=== PATIENT | female | born 1945 | race Caucasian/White ===

== ENCOUNTER 2023-11-20 20:31 | Inpatient (IN) | payer OTHER, SELFPAY ==
[2023-11-20 12:06] VITALS: BP 174/83
[2023-11-20 12:45] VITALS: BMI 22.7
[2023-11-20 13:02] LABS: % Basophils 0.2 % (0-2); % Eosinophils 0.2 % (0-6); % Immature Granulocytes 0.2 % (0-0.5); % Lymphocytes 6.7 % (20.5-51.1); % Monocytes 3.3 % (1.7-9.3); % Neutrophils 89.4 % (42.2-75.2); Absolute Lymphocytes 0.8 10^3/uL (1.2-3.4); Absolute Monocytes 0.4 10^3/uL (0.1-0.6); Absolute Neutrophils 11.1 10^3/uL (1.4-6.5); Hematocrit 46.7 % (37.0-47.0); Hemoglobin 15.1 g/dL (12.0-16.0); Mean Corp Hgb Conc. 32.3 g/dL (33.0-37.0); Mean Corpuscular Hgb 29.3 pg (27.0-31.0); Mean Corpuscular Volume 90.7 fL (81.0-99.0); Mean Platelet Volume 10.3 fL (7.4-10.4); Nucleated Red Blood Cells % 0 %; Platelet Count 177 10^3/uL (130-400); Red Blood Cell Count 5.15 10^6/uL (4.20-5.40); Red Cell Dist. Width 13.1 % (11.5-14.5); White Blood Cell Count 12.4 10^3/uL (4.8-10.8)
[2023-11-20 13:28] LABS: ALT (SGPT) 23 U/L (0-35); AST (SGOT) 35 U/L (14-36); Albumin 4.6 g/dl (3.5-5.0); Alkaline Phosphatase 67 U/L (38-126); Blood Urea Nitrogen 23 mg/dl (7-17); Calcium 9.8 mg/dl (8.4-10.2); Carbon Dioxide 18 mmol/L (22-30); Chloride 104 mmol/L (98-107); Estimated Creatinine Clearance 42 ml/min; Glucose 148 mg/dl (70-99); Lipase 122 U/L (23-300); Potassium 4.2 mmol/L (3.5-5.1); Sodium 140 mmol/L (135-145); Total Bilirubin 0.8 mg/dl (0.2-1.3); Total Protein 7.7 g/dl (6.3-8.2); eGFR 56.95
[2023-11-20] MEDS: NSS 1000 IV ×3 (14:17→21:30)
[2023-11-20 14:18] VITALS: BP 165/81
[2023-11-20 15:53] LABS: Urine Albumin Negative (Neg - Trace); Urine Bilirubin Negative (Negative); Urine Character Clear (Clear); Urine Color Yellow; Urine Glucose Negative (Negative); Urine Ketone 3+ (Negative); Urine Leukocyte 1+ (Negative); Urine Nitrite Negative (Negative); Urine Occult Blood Negative (Negative); Urine Specific Gravity 1.015 (<1.030); Urine Urobilinogen Negative (Neg - 1+)
[2023-11-20 15:55] VITALS: BP 152/74
[2023-11-20 16:10] LABS: Urine Bacteria Few (Negative); Urine Red Blood Cell 0-2 /HPF (0-2); Urine Squamous Cell 0-2 /LPF (Few)
--- NOTE | 2023-11-20 18:13 | ED.GENMED ---
History of Present Illness
General
Chief Complaint: Abdominal Pain
Source: patient and family
Exam Limitations: none
Time Seen by Provider: 11/20/23 12:33
Nursing documentation reviewed up to this point in time: agreed with
Travel History
Have you had any contact with someone who has COVID-19?: No
Do you have any symptoms of coronavirus? Fever > 100 degrees, chills, cough, shortness of breath, sore throat, loss of taste or smell, muscle aches, or headache?: No
History of Present Illness
History of Present Illness:
78-year-old female presenting to the emergency department with concerns of abdominal pain starting last night denies nausea vomiting diarrhea. When she eats she has significant increased discomfort. Has a history of hypertension hyperlipidemia.
Past History
Past History
ED Past Medical History: HTN and Hypercholesterolemia
ED Past Surgical History: Appendectomy
Social History
Tobacco: Non-smoker
Drug: None
Personal:
Living: with family
Employment: Retired
Family History
Family History: Other
Review of Systems
Review of Systems
Allergies reviewed?: Yes
All Other Systems: ROS reviewed and negative except as documented in HPI and ROS
Phy Exam
Physical Exam
Physical Exam:
GENERAL: Alert , in no apparent distress
EYE: pupils equal and reactive
NECK: Supple, no significant adenopathy.
ENT: o/p clr, mmm.
CARDIAC: Regular rate and rhythm .
LUNGS: Clear breath sounds bilaterally, no acute respiratory distress, no wheezes/rales/rhonchi
ABDOMEN: Soft, without focal tenderness, no r/g, no cvat
NEUROLOGICAL: Alert and oriented, no focal neuro deficits
SKIN: Warm and dry, skin intact.
MUSCULOSKELETAL: No edema, well perfused.
PSYCH: Normal and appropriate interaction.
Course
Orders/Labs/Results
Orders:
Orders
11/20/23 12:47
IV Insert/Care/Rem.- Treatment PRN
11/20/23 12:52
Complete Blood Count/With Diff Urgent
Comprehensive Metabolic Panel Urgent
Lipase Urgent
11/20/23 14:04
CT Abd/Pel (IV only)-DH only Urgent
Comment:
Reason For Exam: diffuse abd pain
0.9% Sodium Chloride 1000 ml [Nss] 1,000 ml IV BOLUS
11/20/23 15:40
Urinalysis Reflex To Culture Urgent
Date Specimen was Collected: 11/20/23
Time Specimen was Collected: 15:39
Urine Microscopic Reflex Cult Urgent
Urine Culture Urgent
JUDITH Source: U
Specimen Description:
Date Specimen was Collected: 11/20/23
Time Specimen was Collected: 15:39
11/20/23 18:47
Piperacillin/Tazo 3.375 Gram [Zosyn] 3.375 gram in 50 ml IV NOW
11/20/23 18:48
0.9% Sodium Chloride 1000 ml [Nss] 1,000 ml IV BOLUS
11/21/23 Breakfast
NPO
Allow oral meds: No
Allow clear liquids: No
NPO with Ice Chips: No
Abnormal Lab Results
11/20/23 11/20/23
12:52 15:40
WBC 12.4 H 10^3/uL
(4.8-10.8)
MCHC 32.3 L g/dL
(33.0-37.0)
Absolute Neuts (auto) 11.1 H 10^3/uL
(1.4-6.5)
Absolute Lymphs (auto) 0.8 L 10^3/uL
(1.2-3.4)
Neutrophils % 89.4 H %
(42.2-75.2)
Lymphocytes % 6.7 L %
(20.5-51.1)
Carbon Dioxide 18 L mmol/L
(22-30)
BUN 23 H mg/dl
(7-17)
Glucose 148 H mg/dl
(70-99)
Urine Ketones 3+ A
(Negative)
Leukocyte Esterase Rfl 1+ A
(Negative)
Urine Bacteria (Reflex) Few A
(Negative)
11/20/23 12:52
11/20/23 12:52
Vital Signs
Initial and Last Documented VS:
Initial Vital Signs
Temp Pulse Resp BP Pulse Ox
98.1 F 118 18 174/83 98
11/20/23 12:06 11/20/23 12:06 11/20/23 12:06 11/20/23 12:06 11/20/23 12:06
Last Documented Vital Signs
Temp Pulse Resp BP Pulse Ox
98.3 F 103 18 152/74 97
11/20/23 15:55 11/20/23 15:55 11/20/23 15:55 11/20/23 15:55 11/20/23 15:55
MDM/Problems Addressed
MDM/Problems Addressed:
78-year-old female presenting to the emergency department today with concerns of abdominal pain starting last night worse with eating no nausea vomiting or diarrhea. No significant tenderness palpation on exam. Initial heart rate elevated proving
here after fluids otherwise white blood cell count of 12.[address] scan showing extensive diverticulosis coli and diverticulosis of small bowel potential small area of diverticulitis differential includes contained perforation and
abscess. Concerning this additional finding Case discussed with general surgery they would like patient to be admitted with Zosyn IV fluids n.p.o. Patient stable throughout ER stay. No worsening of abdominal pain throughout ER stay.
*Critical Care Note
Total Time (30-74mins, 75-104mins- exclusive of procedures): Not Applicable
ED Attending Note
-
Portions of this chart may have been created with voice recognition software.� Occasional wrong word or��sound alike� substitutions may have occurred due to the inherent limitations of voice recognition software.
Discharge Plan
Departure
Patient Disposition: Admit
Date of Disposition: 11/20/23
Time of Disposition: 18:51
Admit to: Med/Surg
Admit to doctor: Mary Jane
Presentation/result/management discussed w/ accepting MD/DO: Hospitalist
Patient with high blood pressure during this ER visit?: No
Condition: Good
Covid-19: Not Applicable
Discharge Problem:
Diverticulitis of small intestine
Prescriptions:
No Action
ketorolac 1 DROP drops
2 drp ophthalmic (eye) TID
Patient Comments:
R eye
amlodipine 10 MG tablet
10 mg PO DAILY
doxazosin 4 MG tablet
2 mg PO DAILY
atenolol 50 MG tablet
50 mg PO DAILY
rosuvastatin 10 MG tablet
5 mg PO QPM
Referrals:
Evelyn Silver DO [Family Provider] -
Interventions
Interventions:
*Risk Screen - Suicide Last Done: 11/20/23 12:07
*General Assessment Last Done: 11/20/23 12:45
*Neglect/Abuse Screening Last Done: 11/20/23 12:07
ED- Fall Risk Assessment Last Done: 11/20/23 12:45
*ED COVID-19 Vaccine History Last Done: 11/20/23 12:45
UK-Hlktue-Tclgpynkft Assessment Last Done: 11/20/23 12:45
Discharge Date and Time
Print Language: BELARUSIAN
[2023-11-20] MEDS: ZOSYN 50 IV ×2 (18:55→23:52)
[2023-11-20 18:56] VITALS: BP 165/59
--- NOTE | 2023-11-20 19:56 | HPS.HSE ---
Family Physician
-
Family Physician: Evelyn Silver
Chief Complaint
-
Abd Pain
History of Present Illness
Patient is an 78y F with PMH significant for hypertension and dyslipidemia who presents to ED complaining of abdominal pain. Patient states that she developed abdominal pain about 2 days ago. Pain starts in the lower abdomen and then 'rises'
into the upper abdomen before radiating around to the mid back. Pain is significantly increased with PO intake and - as a result - patient has had little to eat / drink in the past 2 days. She denies any associated N/V/D, no bloody / black stools.
No fevers / chills. Patient denies any prior history of similar symptoms.
Medical History
Past Medical History
Past Medical History: Reports Other
Additional Past Medical History:
Hypertension
Dyslipidemia
Breast Cancer s/p Lumpectomy
Past Surgical History: Reports Other
Additional Past Surgical History:
Right Lumpectomy
Cataracts
Appendectomy
Social History
Tobacco: Non-smoker
Alcohol: Occasional (Rare)
Drug: None
Family History
Family History: Other (Father: Unknown malignancy Daughter: Bladder Cancer)
Allergies / Home Medications
Allergies reflects when Allergies were last updated in [facility].
Home Medications with original date entered in [facility]
Allergy/Medication List:
Allergies
Allergy/AdvReac Type Severity Reaction Status Date / Time
No Known Allergies Allergy Verified 11/20/23 12:04
Home Medications
doxazosin 4 mg tablet 4 mg PO HS 06/13/17
amlodipine 5 mg tablet 5 mg PO HS 11/20/23
loteprednol etabonate 0.5 % eye drops,suspension (Lotemax) 1 drp BOTH EYES HS 11/20/23
rosuvastatin 5 mg tablet 5 mg PO HS 11/20/23
Review of Systems
-
History Source: Patient
A 12 point ROS was completed and negative except as noted: Yes
Constitutional: Denies Fever or Chills
Respiratory: Denies Cough or Trouble Breathing
Cardiac: Denies Chest Pain or Palpitations
Abdomen/GI: Reports Abdominal Pain; Denies Nausea, Vomiting, Diarrhea, Bloody Stools or Black Stools
: Denies Dysuria
Musculoskeletal: Denies Joint Pain or Edema
Neurological: Denies Dizzy or Headache
Psych: Denies Depression or Anxiety
Physical Exam
Vital Signs
Vital Signs
Temp Pulse Resp BP Pulse Ox
98.3 F 106 16 165/59 98
11/20/23 15:55 11/20/23 18:56 11/20/23 18:56 11/20/23 18:56 11/20/23 18:56
Physical Exam
General: Other (78y F in no acute distress.)
HEENT: Moist mucous membranes and PERRLA
Respiratory: Clear; No Wheezes, Rales or Rhonchi
Cardiac: S1/S2, Regular Rhythm, Tachycardia and Murmur (II/ LOBO)
GI: Soft, Non Distended, Normal Bowel Sounds and Other (Mild tenderness in the epigastric region.)
Musculoskeletal: No Clubbing, No Cyanosis and No Edema
Neuro: AO x 3
Laboratory Results
-
11/20/23 12:52
11/20/23 12:52
Laboratory Results
Total Bilirubin 0.8 mg/dl (0.2-1.3) 11/20/23 12:52
AST 35 U/L (14-36) 11/20/23 12:52
ALT 23 U/L (0-35) 11/20/23 12:52
Alkaline Phosphatase 67 U/L (38-126) 11/20/23 12:52
Lipase 122 U/L (23-300) 11/20/23 12:52
Impression/Plan
-
A/P: Patient is an 78y F with PMH significant for hypertension and dyslipidemia who presents to ED complaining of abdominal pain x 2 days.
Abdominal Pain
Small Bowel Diverticulitis +/- Abscess
- Admit for further evaluation and treatment.
- NPO, IVFs, pain control.
- IV PPI daily.
- IV abx with Zosyn for now.
- Surgery evaluation for additional recommendations.
- Lipase was normal.
- Follow for any new / worsening symptoms.
Anion Gap Metabolic Acidosis
- Unclear etiology.
- Check lactate level.
- IVF support.
- Follow for changes in labs / lytes.
Benign Hypertension
- BP elevated in the ED, likely in part secondary to pain.
- Continue efforts at adequate pain control.
- Continue home BP med regimen with holding parameters,.
DVT Prophylaxis: SCDs
Code Status: Full
[2023-11-20 21:08] VITALS: BP 151/78; BP 163/83; BP 173/90; PULSE 107; PULSE 109; PULSE 123; BMI 23.8
[2023-11-20] MEDS: NORVASC 5 MG PO (21:29)
[2023-11-20] MEDS: CARDURA 4 MG PO (21:30)
[2023-11-20 21:49] LABS: Lactic Acid 0.9 mmol/L (0.7-2.0)
[2023-11-20] MEDS: MELATONIN 5 MG PO (22:04)
[2023-11-20 23:00] VITALS: BP 142/71
[2023-11-21] MEDS: ZOSYN 50 IV ×3 (05:15→17:36)
[2023-11-21 06:00] VITALS: BMI 23.8
[2023-11-21 06:42] LABS: Hemoglobin 13.8 g/dL (12.0-16.0); Mean Corp Hgb Conc. 33.7 g/dL (33.0-37.0); Mean Corpuscular Hgb 30.4 pg (27.0-31.0); Mean Corpuscular Volume 90.3 fL (81.0-99.0); Mean Platelet Volume 10.4 fL (7.4-10.4); Platelet Count 180 10^3/uL (130-400); Red Blood Cell Count 4.54 10^6/uL (4.20-5.40); Red Cell Dist. Width 13.2 % (11.5-14.5); White Blood Cell Count 9.2 10^3/uL (4.8-10.8)
[2023-11-21 07:03] LABS: Blood Urea Nitrogen 16 mg/dl (7-17); Calcium 9.2 mg/dl (8.4-10.2); Carbon Dioxide 16 mmol/L (22-30); Chloride 109 mmol/L (98-107); Estimated Creatinine Clearance 34 ml/min; Glucose 61 mg/dl (70-99); Sodium 143 mmol/L (135-145)
[2023-11-21 08:00] VITALS: BP 119/48
[2023-11-21] MEDS: PROTONIX IV 40 MG IV (08:12)
[2023-11-21] MEDS: NSS (PRESERVATIVE FREE) 10 ML IV (08:19)
--- NOTE | 2023-11-21 08:43 | CON.GS ---
Consultation
-
Date/Time Consultation Requested: 11/20/2023
Date/Time Consultation Performed: 11/21/2023
Requesting Provider: Dr. Osiel Da Silva
Performing Provider: Dr. Onel Ortiz
Reason for Consultation: Abdominal pain
Medical History
-
Chief Complaint: Abdominal pain
History of Present Illness:
Patient is a 78-year-old female with past medical history of hypertension, hyperlipidemia, breast CA s/p lumpectomy, who presented to the ED on 11/20/2023 with 2 days history of severe abdominal pain. Patient reports that pain started in the
lower abdomen progressed proximally within 2 days. Patient rated abdominal pain 10/10, was generalized and radiated to the back; she has never had such abdominal pain before. CT scan abdomen/pelvis with IV contrast 11/20/2023 reports extensive
diverticulosis coli with suspected focal small bowel diverticulitis in the LUQ likely a walled off perforation/abscess. General surgery was consulted for evaluation of further management.
Today, patient states that her pain is 0/10. She reports that her last BM was 2 days ago and was harder than usual. Her only past surgical history: Appendectomy. She has never had a colonoscopy but uses Cologuard which she reports were normal. She
denies fever, chills, N/V/D, or urinary symptoms.
Past Medical History
Past Medical History: Diverticulitis, HTN and Hypercholesterolemia
Past Surgical History: Appendectomy
Social History
Tobacco: Non-Smoker
Alcohol: None
Drug: None
Personal:
Living: With Family
Family History
Family History: Reviewed & Not Pertinent
Allergies / Home Medications
Allergy/AdvReac Type Severity Reaction Status Date / Time
No Known Allergies Allergy Verified 11/20/23 12:04
�Medication �Instructions �Recorded �Confirmed �Type
doxazosin 4 mg tablet 4 mg PO HS 06/13/17 11/20/23 History
amlodipine 5 mg tablet 5 mg PO HS 11/20/23 11/20/23 History
loteprednol etabonate 0.5 % eye 1 drp BOTH EYES HS 11/20/23 11/20/23 History
drops,suspension (Lotemax)
rosuvastatin 5 mg tablet 5 mg PO HS 11/20/23 11/20/23 History
Review of Systems
-
History Source: Patient
Constitutional: No Symptoms, Fever (Negative) and Chills (Negative)
EENT: No Symptoms
Respiratory: No Symptoms and Trouble Breathing (Negative)
Cardiac: No Symptoms, Chest Pain (Admitted) and Palpitations (Negative)
Abdomen/GI: Abdominal Pain, Nausea (Negative), Vomiting (Negative), Diarrhea (Negative), Bloody Stools (Negative) and Black Stools (Negative)
: No Symptoms
A 10 point review of systems was completed, and was negative except as per HPI.
Physical Exam
Vital Signs
Temp Pulse Resp BP Pulse Ox
98 F 92 16 119/48 97
11/21/23 08:00 11/21/23 08:00 11/21/23 08:00 11/21/23 08:00 11/21/23 08:00
11/20/23 11/21/23 11/22/23
06:59 06:59 06:59
Actual Weight 61.054 kg
Body Mass Index (BMI) 23.8
Lab Results
11/21/23 06:08
11/21/23 06:08
WBC 9.2 10^3/uL (4.8-10.8) 11/21/23 06:08
Hgb 13.8 g/dL (12.0-16.0) 11/21/23 06:08
Hct 41.0 % (37.0-47.0) 11/21/23 06:08
Plt Count 180 10^3/uL (130-400) 11/21/23 06:08
Abs Immat Gran (auto) 0.0 10^3/uL (0-0.05) 11/20/23 12:52
Neutrophils % 89.4 % (42.2-75.2) H 11/20/23 12:52
Physical Exam
General: Well Nourished, No Apparent Distress and Comfortable
HEENT: Anicteric
Respiratory: Clear and Non Labored Respirations
Cardiac: S1/S2
GI: Soft, Non Tender and Non Distended; Negative Distended
Rectal: Deferred by Provider
Skin: Warm
Neuro: Awake, Alert, Oriented and AO x 3
Psych: Calm
Data Reviewed
-
CT Scan: Image Personally Visualized and interpreted, Report Reviewed by me and Discussed with Physician
Labs: Labs Reviewed by me and Discussed with Physician
Old Records: Reviewed
Assessment / Plan
-
Assessment: 78-year-old female with PMH of HTN, hyperlipidemia, presenting with severe abdominal pain 04/15 radiating to the back on 11/20/2023. Her only past surgical history, appendectomy.
Impression:
Presentation with severe abdominal pain
Anion gap metabolic acidosis
Presentation with severe abdominal pain:
-Resolved with antibiotics, pain control and IV fluid.
-CT abdomen/pelvis 11/20/2023 with diverticulosis coli and small bowel diverticulosis in LUQ.
-Most likely small bowel diverticulitis vs inflamed diverticulosis. Patient with normal lipase and remains afebrile with normal white cell count.
-Continue IV antibiotics, advance diet as tolerated, if she continues to tolerate, will discharge on PO. antibiotics for 5 to 7 days.
Continue daily PPI for now
Anion Gap Metabolic Acidosis:
-Normal lactic acid, low serum glucose, and normal lipase.
-Likely a mixed acidosis due to compensation due to pain.
-Trend labs.
--- NOTE | 2023-11-21 11:07 | W.PN.HOSP.TC ---
Today's Communication/Plan
-
.
Assessment / Plan
Assessment / Plan
Physical Exam
General: Other (78y F in no acute distress.)
HEENT: Moist mucous membranes and PERRLA
Respiratory: Clear; No Wheezes, Rales or Rhonchi
Cardiac: S1/S2, Regular Rhythm, Tachycardia and Murmur (II/ LOBO)
GI: Soft, Non Distended, Normal Bowel Sounds and Other (Mild tenderness in the left side of abdomen)
Musculoskeletal: No Clubbing, No Cyanosis and No Edema
Neuro: AO x 3, she followed commands, non focal on exam.
Psych: calm, no agitation.
Patient is an 78y F with PMH significant for hypertension and dyslipidemia who presents to ED complaining of abdominal pain x 2 days.
Abdominal Pain, resolved
Acute diverticulitis / probable small bowel diverticulitis versus contained mesenteric small bowel perforation presumably due to small bowel diverticulosis
She is improving. Will continue with liquid diet and then advance slowly. No need for pain medication. No fever or chills. Does not complain of abdominal pain. No nausea.
Appreciate surgery help
Anion Gap Metabolic Acidosis
- Unclear etiology.
- Check lactate level.
- IVF support.
- Follow for changes in labs / lytes.
Benign Hypertension
Continue monitor blood pressure
DVT Prophylaxis: SCDs
Code Status: Full
Total time spent to see the patient, examine the patient on the floor, review data and lab results, discuss treatment plan with patient and nursing staff around 55 minutes
Anticipated Discharge: Within 24 hours
Subjective/Interval History
-
Date of Service: November 21, 2023
Not much pain in abdomen
No nausea
Objective Data
-
Labs:
Laboratory Results
11/21/23
06:08
WBC 9.2
Hgb 13.8
Hct 41.0
Plt Count 180
Sodium 143
Potassium 4.0
Chloride 109 H
Carbon Dioxide 16 L
BUN 16
Creatinine 1.1 H
Glucose 61 L
Calcium 9.2
Vital Signs:
Vital Signs
Temp Pulse Resp BP Pulse Ox
98 F 92 16 119/48 97
11/21/23 08:00 11/21/23 08:00 11/21/23 08:00 11/21/23 08:00 11/21/23 08:00
I&O
11/20/23 11/21/23 11/22/23
06:59 06:59 06:59
Intake Total 100 / 100
Balance 100 / 100
[2023-11-21] MEDS: NSS 1000 IV (11:26)
--- NOTE | 2023-11-21 11:47 | CON.GS ---
Consultation
-
Performing Provider: Diana
Reason for Consultation: Small bowel diverticulitis
Medical History
-
Chief Complaint: Abdominal pain
History of Present Illness:
Patient is a 78-year-old female who presented to the emergency department yesterday afternoon secondary to the acute onset of abdominal pain.
Her symptoms started Friday evening, approximately 72 hours ago. They were rather acute in onset and in the central abdomen with intermittent colicky discomfort. Whenever she ate her pain became worse. She reached out to her primary care
provider and was referred for emergency department evaluation. She had some associated anorexia/food aversion. No nausea or vomiting. Last bowel movement was Friday evening and normal formed stool. No melena or hematochezia.
No previous diagnosis of diverticulosis. She has never had a colonoscopy but follows with Cologuard's that have been negative.
Past Medical History
Past Medical History: Other (Hypertension, hyperlipidemia, history of breast cancer)
Past Surgical History: Other (Appendectomy, cataracts, right lumpectomy)
Social History
Tobacco: Non-Smoker
Alcohol: None
Personal:
Living: With Family
Family History
Family History: Reviewed & Not Pertinent
Allergies / Home Medications
Allergy/AdvReac Type Severity Reaction Status Date / Time
No Known Allergies Allergy Verified 11/20/23 12:04
�Medication �Instructions �Recorded �Confirmed �Type
doxazosin 4 mg tablet 4 mg PO HS Blood Pressure 06/13/17 11/20/23 History
amlodipine 5 mg tablet 5 mg PO HS Blood Pressure 11/20/23 11/20/23 History
loteprednol etabonate 0.5 % eye 1 drp BOTH EYES HS Eye Condition 11/20/23 11/20/23 History
drops,suspension (Lotemax)
rosuvastatin 5 mg tablet 5 mg PO HS High Cholesterol 11/20/23 11/20/23 History
Review of Systems
-
History Source: Patient
All other systems: Negative unless noted
A 10 point review of systems was completed, and was negative except as per HPI.
Physical Exam
Vital Signs
Temp Pulse Resp BP Pulse Ox
98 F 92 16 119/48 97
11/21/23 08:00 11/21/23 08:00 11/21/23 08:00 11/21/23 08:00 11/21/23 08:00
11/20/23 11/21/23 11/22/23
06:59 06:59 06:59
Actual Weight 61.054 kg
Body Mass Index (BMI) 23.8
Lab Results
11/21/23 06:08
11/21/23 06:08
WBC 9.2 10^3/uL (4.8-10.8) 11/21/23 06:08
Hgb 13.8 g/dL (12.0-16.0) 11/21/23 06:08
Hct 41.0 % (37.0-47.0) 11/21/23 06:08
Plt Count 180 10^3/uL (130-400) 11/21/23 06:08
Abs Immat Gran (auto) 0.0 10^3/uL (0-0.05) 11/20/23 12:52
Neutrophils % 89.4 % (42.2-75.2) H 11/20/23 12:52
Physical Exam
General: Well Developed, Well Nourished, No Apparent Distress, Comfortable and Other (Lying in hospital bed, at bedside)
HEENT: Normocephalic, Anicteric and Moist Mucous Membranes
Respiratory: Non Labored Respirations
Cardiac: Regular Rhythm
GI: Soft, Non Distended and Tender (Very slight and no tenderness only localized to the left upper quadrant. No rebound rigidity or guarding. No generalized tenderness on palpation or percussion.)
Skin: Warm
Neuro: AO x 3
Psych: Calm
Data Reviewed
-
CT Scan: Image Personally Visualized and interpreted, Report Reviewed by me, Discussed with Physician, Discussed with Patient and Discussed with Family
Assessment / Plan
-
Assessment: 78-year-old female presenting with probable small bowel diverticulitis versus contained mesenteric small bowel perforation presumably due to small bowel diverticulosis.
There appears to be an inflamed diverticulum of the more proximal jejunum. Based on prompt improvement in symptoms and essentially resolution I suspect that this is more likely uncomplicated small bowel diverticulitis with any contained mesenteric
perforation. Leukocytosis resolved, afebrile and no tachycardia. There is essentially minimal to no tenderness on examination this a.m.
Plan: Reviewed with patient and her at bedside. We discussed options for nonoperative management given prompt clinical improvement and presumed uncomplicated small bowel diverticulitis.
Advised regarding potential risk for recurrence particularly if this is a contained small bowel mesentery perforation and not uncomplicated small bowel diverticulitis.
Patient clearly wishes to avoid any surgical intervention unless absolutely necessary.
Okay for liquid diet today, continue Zosyn.
If no exacerbation of pain with p.o. challenge then will advance to low residue diet tomorrow a.m. and subsequently discharge with 10-day course of Augmentin.
Patient could subsequently follow-up with myself as an outpatient to confirm complete resolution of symptoms and consideration of imaging at a later date as an outpatient.
[2023-11-21 15:52] VITALS: BP 112/85
--- NOTE | 2023-11-21 16:20 | CM ---
Met with pt at bedside
Lives with her in a 3 story home
Independent
DME - none
SNF/HH - no past hx
Has ride at d/c
PCP - Dr Rema Silver
Pharm - [facility]
Plan - anticipate home no needs
[2023-11-21] MEDS: REFRESH EYE DROPS (PF) 1 DROPS OPHTH (20:58)
[2023-11-21] MEDS: NORVASC 5 MG PO (20:59)
[2023-11-21] MEDS: CARDURA 4 MG PO (21:05)
[2023-11-21 23:00] VITALS: BP 137/71
[2023-11-22] MEDS: ZOSYN 50 IV ×2 (00:39→05:44)
[2023-11-22] MEDS: NSS 1000 IV (02:45)
[2023-11-22 06:00] VITALS: BMI 24.1
[2023-11-22] MEDS: REFRESH EYE DROPS (PF) 1 DROPS OPHTH (06:31)
[2023-11-22 07:53] VITALS: BP 138/78
[2023-11-22] MEDS: NSS (PRESERVATIVE FREE) 10 ML IV (07:54)
[2023-11-22] MEDS: FLUSH (NSS) 2 FLUSH IV (07:54)
[2023-11-22] MEDS: PROTONIX IV 40 MG IV (07:54)
--- NOTE | 2023-11-22 10:03 | W.PN.GS2 ---
Addendum entered and electronically signed by Onel Ortiz MD 11/22/23 10:12:
pt seen and examined with [facility]EW[facility]
agree with documented progress note
symptoms completely resolved and fariba breakfast
AFVSS
ABD: soft and no tenderness on palpation, no distention
A/P: 78 y/o female with probable resolving uncomplicated jejunal diverticulitis (more likely than contained SB perforation given quick clinical resolution)
d/c on augmentin for 10 day course
outpt imaging in 2-3 weeks which my office will arrange - if diverticulum will still be present if abscess/contain perforation monitor for resolution
follow up with me after imaging completed
Original Note:
Today's Communication / Plan
-
Dispo planning
Assessment / Plan
-
78 yo female presenting with probable small bowel diverticulitis versus contained mesenteric small bowel perforation presumably due to small bowel diverticulosis. Based on prompt improvement in symptoms and essentially resolution I suspect that
this is more likely uncomplicated small bowel diverticulitis with any contained mesenteric perforation.
AFVSS
Tolerating diet
--Would continue on ABX x10 days, ok to transition to PO upon d/c
--Will plan outpatient surgical follow up with CT in 2-3 weeks
--Ok for d/c from surgical standpoint
Subjective Data
-
Date of Service: November 22, 2023
Patient seen and examined at bedside with Dr. Ortiz. Denies pain. Tolerating diet. No n/v.
Objective Data
-
Intake and Output
11/21/23 11/22/23 11/23/23
06:59 06:59 06:59
Intake Total 100 / 100 660 / 660
Balance 100 / 100 660 / 660
Intake:
Oral fluids 660 / 660
IV piggybacks 100 / 100
Other:
Number of approximated MODERATE 3 2
amounts of urine
Vital Signs
Temp Pulse Resp BP Pulse Ox
98.2 F 98 16 138/78 97
11/22/23 07:53 11/22/23 07:53 11/22/23 07:53 11/22/23 07:53 11/22/23 07:53
Lab Results
11/21/23 06:08
11/21/23 06:08
Calcium 9.2 mg/dl (8.4-10.2) 11/21/23 06:08
Total Bilirubin 0.8 mg/dl (0.2-1.3) 11/20/23 12:52
AST 35 U/L (14-36) 11/20/23 12:52
ALT 23 U/L (0-35) 11/20/23 12:52
Alkaline Phosphatase 67 U/L (38-126) 11/20/23 12:52
Total Protein 7.7 g/dl (6.3-8.2) 11/20/23 12:52
Albumin 4.6 g/dl (3.5-5.0) 11/20/23 12:52
Physical Exam
-
NAD
ABD soft, NT, ND
--- NOTE | 2023-11-22 10:16 | W.DCSUMMARY ---
Discharge Summary
Discharge Data
Date of Admission: 11/20/23
Date of Discharge: 11/22/23
-
Pending Results: No
Hospital Course
78 years old female who presented with abdominal pain and nausea for a few days duration. She was found to have leukocytosis but no fever. Scan of the abdomen & pelvis showed extensive diverticulosis with focal small bowel diverticulitis in the
left upper quadrant, differential includes contained perforation/abscess. No free intraperitoneal air. Patient was evaluated by surgery. She was diagnosed with a probable resolving uncomplicated jejunal diverticulitis. Leukocytosis resolved.
Patient did not need pain medications in the hospital. She tolerated intravenous antibiotic. Diet started slowly and advanced without problem. No nausea or vomiting. No fever or chills. Patient was advised to continue course of antibiotic at
home and follow-up with surgery in 2 to 3 weeks. Patient was counseled to do screening colonoscopy, she remained hesitant to do it but verbalized understanding. Patient remained hemodynamically stable and was discharged in a stable condition.
Physical Exam
General: Other (78y F in no acute distress.)
HEENT: Moist mucous membranes and PERRLA
Respiratory: Clear; No Wheezes, Rales or Rhonchi
Cardiac: S1/S2, Regular Rhythm, + murmur.
GI: Soft, Non Distended, Normal Bowel Sounds and no tenderness in all quadrants
Musculoskeletal: No Clubbing, No Cyanosis and No Edema
Neuro: AO x 3, she followed commands, non focal on exam.
Psych: calm, no agitation.
Total discharge time spent to see the patient, examine the patient on the floor, review data and lab results, discuss discharge plan with patient, surgery and nursing staff around 65 minutes
Discharge Plan
-
Patient Disposition: Home (Routine Discharge)
Discharge Diagnosis/Procedures: Acute diverticulitis
Diet: Low Residue
Additional Diets: Advance diet as tolerated
Referrals:
Onel Ortiz MD [Active] - in two to three weeks
Evelyn Silver DO [Family Provider] - in one to two weeks
Prescriptions:
New
amoxicillin-pot clavulanate 875-125 mg tablet
1 tab PO BID Qty: 16 0RF
Continued
doxazosin 4 MG tablet
4 mg PO HS
amlodipine 5 mg tablet
5 mg PO HS
loteprednol etabonate [Lotemax] 0.5 % Drops,Suspension
1 drp BOTH EYES HS
rosuvastatin 5 mg tablet
5 mg PO HS
Discharge Orders:
Discharge Patient (As Directed); Ordered 11/22/23
Ordered By: Silverio Lipscomb
Discharge Date and Time
Print Language: PARAGUAYAN
[2023-11-22 10:44] VITALS: BP 157/70
--- NOTE | 2023-11-22 10:53 | CM ---
Pt for d/c
will transport home
Discussed IMM
Plan - Home no needs
== END 2023-11-22 11:01 | disposition home or self-care (01) | DRG 392 ==
LOC: 3 WEST ACU 20:31
PROVIDERS: Physician Assistant; ADMITTING PHYSICIAN Hospitalist; ATTENDING PHYSICIAN Internal Medicine; EMERGENCY PHYSICIAN Emergency Medicine; FAMILY PHYSICIAN Family Medicine; OTHER PHYSICIAN Surgery
DX: K57.40 Diverticulitis of both small and large intestine with perforation and abscess without bleeding (principal); E87.4 Mixed disorder of acid-base balance; I10 Essential (primary) hypertension; E78.00 Pure hypercholesterolemia, unspecified; Z85.3 Personal history of malignant neoplasm of breast; Z90.49 Acquired absence of other specified parts of digestive tract
CPT/HCPCS: 74177; 80048; 80053; 81003; 81015; 83605; 83690; 85025; 85027; 87086; 99285; Q9967

== ENCOUNTER → 2023-12-04 10:42 | Outpatient (REF) | payer OTHER, SELFPAY | LOC: RAD 10:42 | PROVIDERS: ATTENDING PHYSICIAN Surgery; FAMILY PHYSICIAN Family Medicine | DX: K57.92 Diverticulitis of intestine, part unspecified, without perforation or abscess without bleeding (principal) | CPT/HCPCS: 74177; Q9967 ==

== ENCOUNTER → 2024-07-14 13:09 | Outpatient (REF) | payer OTHER, SELFPAY | LOC: HWWDC 13:09 | PROVIDERS: ATTENDING PHYSICIAN Family Medicine | DX: Z12.31 Encounter for screening mammogram for malignant neoplasm of breast (principal) | CPT/HCPCS: 77063; 77067 ==

== ENCOUNTER 2025-04-23 23:56 | Observation (INO) | payer OTHER, SELFPAY ==
[2025-04-23 16:07] VITALS: BP 173/53
--- NOTE | 2025-04-23 16:38 | ED.GENMED ---
History of Present Illness
<YAN Rae - Last Filed: 04/23/25 23:23>
General
Chief Complaint: Chest Pain
Source: patient
Exam Limitations: none
Time Seen by Provider: 04/23/25 16:14
Nursing documentation reviewed up to this point in time: agreed with
History of Present Illness
History of Present Illness:
Patient is an 79-year-old female past with history of hypertension hyperlipidemia presents to the ER for evaluation. 45 minutes ago she was getting ready for bahai and had sudden sharp left arm pain left chest pain and sharp shooting pain that
went up her neck. It lasted for 3 to 5 minutes. Her called 911 and she was given 2 nitroglycerin which did resolve symptoms. She was also given 4 baby aspirin. She complains of feeling shaky now and nauseous but pain has resolved. She
had no associated shortness of breath with this.
Past History
<YAN Rae - Last Filed: 04/23/25 23:23>
Past History
ED Past Medical History: HTN and Hypercholesterolemia
ED Past Surgical History: Appendectomy
Social History
Tobacco: Non-smoker
Drug: None
Personal:
Living: with family
Employment: Retired
Family History
Family History: Other
Phy Exam
<YAN Rae - Last Filed: 04/23/25 23:23>
General Physical Exam
General Presentation: no apparent distress
General age: appears stated age
Scores
<YAN Rae - Last Filed: 04/23/25 23:23>
Heart Score for Chest Pain Patients
STEMI patient?: Not applicable
Course
<YAN Rae - Last Filed: 04/23/25 23:23>
Orders/Labs/Results
Orders:
Orders
04/23/25 16:19
Electrocardiogram (*1) Urgent
Reason for Study: Chest Pain
Cardiac Monitoring- Treatment ONCE
EKG- Treatment ONCE
IV Insert/Care/Rem.- Treatment PRN
O2 Therapy [RESP] Urgent
Titrate/Wean O2 to maintain O2 sat greater than (%): 90
Special Instructions: Maintain sats >/=90%
Pulse Ox/spot Check [RESP] Urgent
Quantity: 1
Special Instructions: ON ROOM AIR
04/23/25 16:45
Basic Metabolic Panel Urgent
Complete Blood Count/With Diff Urgent
Troponin I Urgent
04/23/25 16:47
Chest [CR Chest - 2 Views ] Urgent
Comment:
Reason For Exam: cp
04/23/25 17:44
Potassium Urgent
04/23/25 17:57
Electrocardiogram (*1) Stat
Reason for Study: Other
Other Reason for Exam: chest pain
Cardiac Monitoring- Treatment ONCE
EKG- Treatment ONCE
04/23/25 18:05
Ondansetron Injectable [Zofran] 4 mg .ROUTE .STK-MED ONE
04/23/25 18:10
Ondansetron Injectable [Zofran] 4 mg IV NOW STA
04/23/25 18:13
DDimer [D-Dimer] Urgent
04/23/25 18:47
CT Chest PE Study Urgent
Comment:
Reason For Exam: chest paim
04/23/25 18:49
0.9% Sodium Chloride 1000 ml [Nss] 1,000 ml IV BOLUS
04/23/25 22:10
Electrocardiogram (*1) Urgent
Reason for Study: Chest Pain
EKG- Treatment ONCE
04/23/25 22:29
Troponin I Urgent
04/23/25 23:33
Admit/Transfer Patient As Directed
Co-Sign Provider:
Level of Care: Observation services
Assign to:: Telemetry
Physician / Group: charly
Diagnosis: chest pain
Reason for Telemetry: Arrhythmia
Date to Stop Telemetry: 04/26/25
Time to Stop Telemetry: 11:00
PRN Pain Medication Management As Directed
May give lesser potent ordered pain med per pt: Yes
preference::
Protocol:: Medication orders for pain may be administered in a
manner that supports deferring to patient preference
when the pt is:
- Requesting an ordered lesser potent pain medication.
Least to most potent pain medications are defined
as: acetaminophen < NSAID < tramadol < opioids
(morphine, oxycodone, hydromorphone).
- Requesting a lesser dose of the same medication IF
ORDERED.
- Requesting a less intrusive route of administration
if both routes are prescribed by the provider (PO <
IV).
04/23/25 23:34
Code Status As Directed
Resuscitation Status: Full Code
04/24/25 03:26
Activity As Directed
Activity Level: As Tolerated
Sequential Compression Device [Pneumatic Compression Sleeves] As Directed
Type: Knee high
Vital Signs As Directed
Frequency: Per unit guidelines
DX Deep Vein Thrombosis Video Routine
04/24/25 04:05
Complete Blood Count/With Diff IN AM
Comprehensive Metabolic Panel IN AM
Troponin I Q6H
04/26/25 11:00
DC Protocol for Telemetry ONCE
Abnormal Lab Results
04/23/25 04/23/25
16:45 18:13
Absolute Neuts (auto) 8.0 H 10^3/uL
(1.4-6.5)
Neutrophils % 77.4 H %
(42.2-75.2)
Lymphocytes % 14.6 L %
(20.5-51.1)
D-Dimer 2.67 H ug/mlFEU
(0.00-0.50)
Chloride 108 H mmol/L
(98-107)
BUN 31 H mg/dl
(7-17)
Glucose 115 H mg/dl
(70-99)
04/23/25 16:45
04/23/25 17:44
Vital Signs
Initial and Last Documented VS:
Initial Vital Signs
Temp Pulse Resp BP Pulse Ox
98.3 F 105 16 173/53 98
04/23/25 16:07 04/23/25 16:07 04/23/25 16:07 04/23/25 16:07 04/23/25 16:07
Last Documented Vital Signs
Temp Pulse Resp BP Pulse Ox
98.0 F 94 18 161/76 96
04/24/25 15:11 04/24/25 15:11 04/24/25 15:11 04/24/25 15:11 04/24/25 15:11
Chief Of Staff consulted with Physician
Chief Of Staff consulted with physician?: Yes
Name of Physician Consulted: Beau
<Jean Carlos Yanez MD - Last Filed: 04/24/25 17:12>
Orders/Labs/Results
Orders:
Orders
04/23/25 16:19
Electrocardiogram (*1) Urgent
Reason for Study: Chest Pain
Cardiac Monitoring- Treatment ONCE
EKG- Treatment ONCE
IV Insert/Care/Rem.- Treatment PRN
O2 Therapy [RESP] Urgent
Titrate/Wean O2 to maintain O2 sat greater than (%): 90
Special Instructions: Maintain sats >/=90%
Pulse Ox/spot Check [RESP] Urgent
Quantity: 1
Special Instructions: ON ROOM AIR
04/23/25 16:45
Basic Metabolic Panel Urgent
Complete Blood Count/With Diff Urgent
Troponin I Urgent
04/23/25 16:47
Chest [CR Chest - 2 Views ] Urgent
Comment:
Reason For Exam: cp
04/23/25 17:44
Potassium Urgent
04/23/25 17:57
Electrocardiogram (*1) Stat
Reason for Study: Other
Other Reason for Exam: chest pain
Cardiac Monitoring- Treatment ONCE
EKG- Treatment ONCE
04/23/25 18:05
Ondansetron Injectable [Zofran] 4 mg .ROUTE .STK-MED ONE
04/23/25 18:10
Ondansetron Injectable [Zofran] 4 mg IV NOW STA
04/23/25 18:13
DDimer [D-Dimer] Urgent
04/23/25 18:47
CT Chest PE Study Urgent
Comment:
Reason For Exam: chest paim
04/23/25 18:49
0.9% Sodium Chloride 1000 ml [Nss] 1,000 ml IV BOLUS
04/23/25 22:10
Electrocardiogram (*1) Urgent
Reason for Study: Chest Pain
EKG- Treatment ONCE
04/23/25 22:29
Troponin I Urgent
04/23/25 23:33
Admit/Transfer Patient As Directed
Co-Sign Provider:
Level of Care: Observation services
Assign to:: Telemetry
Physician / Group: charly
Diagnosis: chest pain
Reason for Telemetry: Arrhythmia
Date to Stop Telemetry: 04/26/25
Time to Stop Telemetry: 11:00
PRN Pain Medication Management As Directed
May give lesser potent ordered pain med per pt: Yes
preference::
Protocol:: Medication orders for pain may be administered in a
manner that supports deferring to patient preference
when the pt is:
- Requesting an ordered lesser potent pain medication.
Least to most potent pain medications are defined
as: acetaminophen < NSAID < tramadol < opioids
(morphine, oxycodone, hydromorphone).
- Requesting a lesser dose of the same medication IF
ORDERED.
- Requesting a less intrusive route of administration
if both routes are prescribed by the provider (PO <
IV).
04/23/25 23:34
Code Status As Directed
Resuscitation Status: Full Code
04/24/25 03:26
Activity As Directed
Activity Level: As Tolerated
Sequential Compression Device [Pneumatic Compression Sleeves] As Directed
Type: Knee high
Vital Signs As Directed
Frequency: Per unit guidelines
DX Deep Vein Thrombosis Video Routine
04/24/25 04:05
Complete Blood Count/With Diff IN AM
Comprehensive Metabolic Panel IN AM
Troponin I Q6H
04/26/25 11:00
DC Protocol for Telemetry ONCE
Abnormal Lab Results
04/23/25 04/23/25
16:45 18:13
Absolute Neuts (auto) 8.0 H 10^3/uL
(1.4-6.5)
Neutrophils % 77.4 H %
(42.2-75.2)
Lymphocytes % 14.6 L %
(20.5-51.1)
D-Dimer 2.67 H ug/mlFEU
(0.00-0.50)
Chloride 108 H mmol/L
(98-107)
BUN 31 H mg/dl
(7-17)
Glucose 115 H mg/dl
(70-99)
04/23/25 16:45
04/23/25 17:44
Vital Signs
Initial and Last Documented VS:
Initial Vital Signs
Temp Pulse Resp BP Pulse Ox
98.3 F 105 16 173/53 98
04/23/25 16:07 04/23/25 16:07 04/23/25 16:07 04/23/25 16:07 04/23/25 16:07
Last Documented Vital Signs
Temp Pulse Resp BP Pulse Ox
98.0 F 94 18 161/76 96
04/24/25 15:11 04/24/25 15:11 04/24/25 15:11 04/24/25 15:11 04/24/25 15:11
<YAN Rae - Last Filed: 04/23/25 23:23>
MDM/Problems Addressed
MDM/Problems Addressed:
As documented patient is an 79-year-old female who presented with chest pain arm pain neck pain while getting ready for [place]ahai. It lasted 45 minutes. It was resolved with nitroglycerin. She has no cardiac history. She presented anxious and shaky
however had no episodes of chest pain throughout the ER stay. EKG showed normal sinus rhythm with frequent PACs. Patient was eval by ED physician. Patient was mildly tachycardic and therefore D-dimer was ordered and negative for PE.
Repeat troponin trending up with concerning chest pain relieved with nitroglycerin and patient's medical history including hypertension hyperlipidemia as discussed with the physician would recommend admission.
<YAN Rae - Last Filed: 04/23/25 23:23>
*Radiology
Radiology exam reviewed: radiology read reviewed
*Pulse Oximetry
SaO2: 98
Oxygen Mode of Delivery: Room air
Patient hypoxic: no
*EKG
Interpreted by ED Provider?: Yes
Interpretation: normal
Heart Rate: 96
Rate: normal
Rhythm: sinus and PAC's
Ischemia: no ischemia
*Critical Care Note
Total Time (30-74mins, 75-104mins- exclusive of procedures): Not Applicable
Data Reviewed
Source: patient and spouse
ED Attending Note
<YAN Rae - Last Filed: 04/23/25 23:23>
-
Portions of this chart may have been created with voice recognition software.� Occasional wrong word or��sound alike� substitutions may have occurred due to the inherent limitations of voice recognition software.
<Jean Carlos Yanez MD - Last Filed: 04/24/25 17:12>
ED Attending Note
Patient seen and examined by attending physician: Yes
ED Attending Note:
Patient presents ED secondary to sudden onset of chest pain, while she was getting ready to go to [place] this afternoon. Chest pain described as stabbing, with radiation to left upper arm and posterior neck, without any alleviating or exacerbating
factors. Denies trauma. Denies shortness of breath. Denies diaphoresis. Denies nausea or vomiting. Denies previous history of similar symptoms. Denies back pain. Denies leg pain or swelling. No recent travel or surgery. Denies recent
illness. Denies recent change in medications or diet. Denies family history of heart disease. Denies smoking. 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 As such, requested her to call
911 immediately. Aspirin taken at home prior to transfer. On the way to the hospital, via paramedics, patient was given nitroglycerin x 2, with gradual improvement in symptoms. At the time evaluation in ED, patient is without any chest pain.
Chest pain lasted approximately 45 minutes within 1 hour.
Physical Exam
General: no apparent distress, not acutely ill. afebrile
Head: nc/at. eomi
Neck: supple. normal range of motion.
Heart: s1/s2 regular rate and rhythm
Lungs: no acute respiratory distress. clear bilaterally. chest wall nontender to palpation
Abdomen: normal bowel sounds. not tender
Neuro: alert and oriented x 3. no focal neurological deficits
Skin: no rash
Psychiatric: well kept. interactive and cooperative
Extremities: no edema. no calf tenderness.
Patient remains chest pain-free during observation in the ED. Initial troponin normal. Due to elevated D-dimer, CT angiogram PE study ordered.
CT PE study negative for acute pulmonary embolism. Patient remains chest pain-free. As such, after discussion, decision made to repeat troponin at this time. If negative, and patient remains chest pain-free, patient will be referred to cardiology
via chest pain hotline for urgent outpatient consultation.
Repeat troponin with mild elevation. As such, with patient's age and cardiac risk factors, patient will be admitted for further evaluation and treatment.
Discharge Plan
Departure
Patient Disposition: Admit
Date of Disposition: 04/23/25
Time of Disposition: 23:20
Admit to: Telemetry
Admit to doctor: hospitalist
Presentation/result/management discussed w/ accepting MD/DO: Hospitalist
Patient with high blood pressure during this ER visit?: Yes
Condition: Fair
Covid-19: Not Applicable
Discharge Problem:
Chest pain
Interventions
Interventions:
*Risk Screen - Suicide Last Done: 04/23/25 16:07
*General Assessment Last Done: 04/23/25 16:07
*Neglect/Abuse Screening Last Done: 04/23/25 16:07
*ED- Fall Risk Assessment Last Done: 04/23/25 18:15
*ED COVID-19 Vaccine History Last Done: 04/23/25 18:15
*ED Influenza Vaccine History Last Done: 04/23/25 18:15
ED- Cardiac Assessment Last Done: 04/23/25 18:15
[2025-04-23 16:51] LABS: Hematocrit 41.2 % (37.0-47.0); Hemoglobin 13.8 g/dL (12.0-16.0); Mean Corp Hgb Conc. 33.5 g/dL (33.0-37.0); Mean Corpuscular Volume 88.4 fL (81.0-99.0); Nucleated Red Blood Cells % 0 %; Platelet Count 171 10^3/uL (130-400); Red Cell Dist. Width 13.2 % (11.5-14.5)
[2025-04-23 17:00] VITALS: BP 160/59
[2025-04-23 17:07] LABS: Blood Urea Nitrogen 31 mg/dl (7-17); Calcium 9.6 mg/dl (8.4-10.2); Carbon Dioxide 23 mmol/L (22-30); Chloride 108 mmol/L (98-107); Glucose 115 mg/dl (70-99); Sodium 142 mmol/L (135-145); eGFR > 60.00
[2025-04-23 17:15] LABS: Troponin I < 0.012 ng/ml
[2025-04-23 18:01] VITALS: BP 162/55
[2025-04-23] MEDS: ZOFRAN 4 MG IV (18:10)
[2025-04-23 18:12] LABS: Potassium 4.2 mmol/L (3.5-5.1)
[2025-04-23 18:33] LABS: D-Dimer 2.67 ug/mlFEU (0.00-0.50)
[2025-04-23 19:00] VITALS: BP 163/52
[2025-04-23] MEDS: NSS 1000 IV (19:09)
[2025-04-23 20:00] VITALS: BP 174/68
[2025-04-23 23:06] LABS: Troponin I 0.013 ng/ml
--- NOTE | 2025-04-23 23:39 | HPS.HSE ---
Family Physician
-
Family Physician: Evelyn Silver
Chief Complaint
-
chest pain
History of Present Illness
79-year-old female past medical history of GERD, hypertension, diverticulitis, hyperlipidemia, breast cancer status post lumpectomy, presenting for sudden sharp pain in her left arm and under the left breast, left chest shooting pain up to the neck
that started 45 minutes prior to arrival. Pain lasted for an hour. Never had pain like this before. called 911 and she was given 2 nitroglycerin which resolved her symptoms. She was also given 4 baby aspirin. She had nausea without
vomiting. She also had burping and indigestion afterwards but no heartburn. Denies shortness of breath. Denies any symptoms currently.
No prior history of heart disease.
She denies smoking or alcohol use.
Family history of heart disease unknown.
Medical History
Past Medical History
Past Medical History: Reports Other (GERD, hypertension, diverticulitis, hyperlipidemia, breast cancer status post lumpectomy,)
Past Surgical History: Reports Other (Right lumpectomy, cataracts, appendectomy,)
Social History
Tobacco: Non-smoker
Alcohol: None
Drug: None
Family History
Family History: Not pertinent
Allergies / Home Medications
Allergies reflects when Allergies were last updated in [facility].
Home Medications with original date entered in [facility]
Allergy/Medication List:
Allergies
Allergy/AdvReac Type Severity Reaction Status Date / Time
No Known Allergies Allergy Verified 11/20/23 12:04
Home Medications
doxazosin 4 mg tablet 4 mg PO HS Blood Pressure 06/13/17
amlodipine 5 mg tablet 5 mg PO HS Blood Pressure 11/20/23
loteprednol etabonate 0.5 % eye drops,suspension (Lotemax) 1 drp BOTH EYES HS Eye Condition 11/20/23
rosuvastatin 5 mg tablet 5 mg PO HS High Cholesterol 11/20/23
amoxicillin 875 mg-potassium clavulanate 125 mg tablet 1 tab PO BID #16 tabs 11/22/23
Review of Systems
-
History Source: Patient
A 12 point ROS was completed and negative except as noted: Yes
Constitutional: Reports No Symptoms
EENT: Reports No Symptoms
Respiratory: Reports See HPI
Cardiac: Reports See HPI
Abdomen/GI: Reports No Symptoms
: Reports No Symptoms
Musculoskeletal: Reports No Symptoms
Skin: Reports No Symptoms
Neurological: Reports No Symptoms
Endocrine: Reports No Symptoms
Hematologic/Lymphatic: Reports No Symptoms
Psych: Reports No Symptoms
Physical Exam
Vital Signs
Vital Signs
Temp Pulse Resp BP Pulse Ox
98.3 F 90 22 162/55 97
04/23/25 16:07 04/23/25 18:15 04/23/25 18:15 04/23/25 18:01 04/23/25 18:15
Physical Exam
General: Well Developed, Well Nourished and No Apparent Distress
HEENT: NormoCephalic, Moist mucous membranes and Atraumatic
Respiratory: Clear
Cardiac: S1/S2 and Regular Rhythm; No Murmur or Rub
GI: Soft, Non Tender, Non Distended and Normal Bowel Sounds; No Organomegaly
Rectal: Deferred by Provider
Musculoskeletal: No Clubbing, No Cyanosis and No Edema
Skin: No Rash
Neuro: Nonfocal/grossly intact
Laboratory Results
-
04/23/25 16:45
04/23/25 17:44
Laboratory Results
Total Bilirubin Cancelled 04/23/25 16:45
AST Cancelled 04/23/25 16:45
ALT Cancelled 04/23/25 16:45
Alkaline Phosphatase Cancelled 04/23/25 16:45
Troponin I 0.013 ng/ml 04/23/25 22:29
Data Reviewed
-
Lab Data: Labs Reviewed by me
Old Records: Reviewed
Impression/Plan
-
IMPRESSION:
PLAN:
# Atypical chest pain likely musculoskeletal versus GERD rule out ACS
- Troponin initially negative, second troponin 0.013
- D-dimer 2.67
-Chest x-ray unremarkable
-EKG shows normal sinus rhythm, no ischemic changes
- CT PE showed no evidence of pulmonary embolism, evaluation of some of the more peripheral pulmonary arterial branches limited and peripheral pulmonary artery embolism cannot be excluded, cardiomegaly and coronary calcifications, some
collateralization of blood flow seen about the right shoulder limited by beam hardening artifact cannot exclude some right subclavian artery stenosis
- Already given 4 baby aspirin before arrival
Essential hypertension
- Continue amlodipine, doxazosin
History of diverticulitis
Hyperlipidemia
- Continue statin
History of GERD
Breast cancer status post lumpectomy
Full code
DVT prophylaxis�heparin
Regular diet
[2025-04-24 04:05] VITALS: BP 132/56
[2025-04-24 04:16] LABS: Hematocrit 39.4 % (37.0-47.0); Hemoglobin 13.3 g/dL (12.0-16.0); Mean Corp Hgb Conc. 33.8 g/dL (33.0-37.0); Mean Corpuscular Volume 90.0 fL (81.0-99.0); Nucleated Red Blood Cells % 0 %; Platelet Count 172 10^3/uL (130-400); Red Cell Dist. Width 13.0 % (11.5-14.5)
[2025-04-24 04:26] LABS: ALT (SGPT) 13 U/L (0-35); AST (SGOT) 21 U/L (14-36); Albumin 3.4 g/dl (3.5-5.0); Alkaline Phosphatase 44 U/L (38-126); Blood Urea Nitrogen 22 mg/dl (7-17); Calcium 8.3 mg/dl (8.4-10.2); Carbon Dioxide 26 mmol/L (22-30); Chloride 111 mmol/L (98-107); Glucose 103 mg/dl (70-99); Potassium 3.5 mmol/L (3.5-5.1); Sodium 143 mmol/L (135-145); Total Protein 6.0 g/dl (6.3-8.2); eGFR > 60.00
[2025-04-24 04:49] LABS: Troponin I 0.014 ng/ml
[2025-04-24 05:00] VITALS: BP 137/59
[2025-04-24 06:00] VITALS: BP 134/59
--- NOTE | 2025-04-24 07:42 | W.PN.HOSP.TC ---
Today's Communication/Plan
-
Discharge today
Assessment / Plan
Assessment / Plan
Physical Exam
General: Well Developed, Well Nourished and No Apparent Distress
HEENT: Normocephalic, Moist mucous membranes and Atraumatic
Respiratory: Clear to Auscultation Bilaterally
Cardiac: S1/S2 and Regular Rhythm; No Murmur or Rub
GI: Soft, Non Tender, Non Distended and Normal Bowel Sounds
Musculoskeletal: No Cyanosis and No Edema
Skin: Warm. Dry.
Neuro: AAOx3. Nonfocal/grossly intact
Assessment/Plan
79-year-old female past medical history of GERD, hypertension, diverticulitis, hyperlipidemia, breast cancer status post lumpectomy, presenting for sudden sharp pain in her left arm and under the left breast, left chest shooting pain up to the neck
that started 45 minutes prior to arrival. Pain lasted for an hour. Never had pain like this before. called 911 and she was given 2 nitroglycerin which resolved her symptoms. She was also given 4 baby aspirin. She had nausea without vomiting.
She also had burping and indigestion afterwards but no heartburn. Denied shortness of breath. No prior history of heart disease. She denied smoking or alcohol use. Family history of heart disease unknown.
#Atypical chest pain likely musculoskeletal versus GERD rule out ACS
#Elevated D-Dimer at 2.67
#Family history of heart disease and CABG in patient's sister
#Coronary Artery Calcifications on chest CT
- Troponins have been negative
- D-dimer elevated at 2.67 but no concern for acute coronary syndrome, limb ischemia, stroke or PE; no recent trauma, liver disease, kidney disease
- Patient is tolerating her diet well
- Given elevated D-Dimer, consider lower extremity DVT ultrasound outpatient and cancer monitoring/surveillance outpatient
- Chest x-ray unremarkable
- EKG showed PACs
- CT PE showed no evidence of pulmonary embolism, evaluation of some of the more peripheral pulmonary arterial branches limited and peripheral pulmonary artery embolism cannot be excluded, cardiomegaly and coronary
calcifications, some collateralization of blood flow seen about the right shoulder limited by beam hardening artifact cannot exclude some right subclavian artery stenosis
- Already given 4 baby aspirin before arrival
- I communicated about patient's case with on-call manometer technician Dr. Tate, and since patient really wants to leave the hospital today, Dr. Tate will put her in for the chest pain hotline for urgent follow up
- Patient is a nurse/former nurse and communicated to me that she fully understands that she needs urgent evaluation and work-up outpatient
- Outpatient medication regimen: prn sublingual nitroglycerin, Aspirin 81 mg daily, increase Crestor to 20-40 mg daily
Essential hypertension
- Continue amlodipine, doxazosin
History of diverticulitis
Hyperlipidemia
- Continue statin
History of GERD
Breast cancer status post lumpectomy
Full code
DVT prophylaxis�heparin
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 Patient stated multiple times
that she wants to go home today and understands everything.
More than 30 minutes spent in discharge including
Final examination of the patient
Summarizing hospital stay
Instructions for continuing care to all relevant caregivers
Preparation of discharge records, prescriptions, and referral forms
Total time spent (in minutes): 41
Anticipated Discharge: Today
Subjective/Interval History
-
Date of Service: April 24, 2025
Patient was seen and examined. She denied any chest pain, shortness of breath or any other complaints. She insisted to go home today.
Objective Data
-
Labs:
Laboratory Results
04/24/25
04:05
WBC 8.2
Hgb 13.3
Hct 39.4
Plt Count 172
Sodium 143
Potassium 3.5
Chloride 111 H
Carbon Dioxide 26
BUN 22 H
Creatinine 0.8
Glucose 103 H
Calcium 8.3 L
Total Bilirubin 0.4
AST 21
ALT 13
Alkaline Phosphatase 44
Vital Signs:
Vital Signs
Temp Pulse Resp BP Pulse Ox
98.3 F 76 13 174/68 97
04/23/25 16:07 04/24/25 01:45 04/24/25 01:45 04/23/25 20:00 04/23/25 23:45
--- NOTE | 2025-04-24 09:06 | EDCM ---
CM reviewed chart and met with pt bedside in ED. Lives with her in multistory home, 2 floors plus finished basement, no MONICA, first floor half bath, full flight to second floor bedroom and full bath.
Independent in ADLs, personal care and ambulation at baseline. No assistive devices, no DME.
Confirms prescription coverage.
FERREIRA reviewed and signed, declined copy.
No hx VN or SNF
PCP: Evelyn Silver
Pharmacy: [facility]
Anticipate discharge home, no needs, CM will continue to follow for any discharge planning needs.
--- NOTE | 2025-04-24 14:29 | W.DCSUMMARY ---
Discharge Summary
Discharge Data
Date of Admission: 04/23/25
Date of Discharge: 04/24/25
Total time spent discharging patient (in min): 41
-
Pending Results: No
Hospital Course
79-year-old female with past medical history of GERD, hypertension, diverticulitis, hyperlipidemia and breast cancer status post lumpectomy, presented for sudden sharp pain in her left arm and under the left breast, left chest shooting pain up to
the neck that started 45 minutes prior to arrival. The pain lasted for about an hour and patient reported that she never had pain like this before. Patient's called 911 and patient was then given 2 nitroglycerin which resolved her symptoms.
Patient was also given 4 baby aspirin. Patient had nausea without vomiting; she also had burping and indigestion afterwards but no heartburn. Patient denied shortness of breath. Electrocardiogram did not suggest acute coronary syndrome and her
troponins were negative. Patient's D-Dimer was found to be elevated at 2.67; CT Chest PE study was done, and it showed no pulmonary embolism. Patient said that she understood everything and that she really wanted to go home and have remaining
evaluation performed outpatient. Patient's case was discussed with on-call manager event who agreed with Aspirin, high intensity statin and urgent outpatient follow-up for echo and stress test.
Discharge Plan
-
Patient Disposition: Home (Routine Discharge)
Discharge Diagnosis/Procedures: #Cardiomegaly and Coronary Artery Calcifications on CT Chest in hospital on 04/23/25
#Chronic degenerative changes of the spine (as per radiologist's report, on hospital chest x-ray)
#Atypical chest pain likely musculoskeletal versus GERD rule out ACS
#Elevated D-Dimer at 2.67
#Family history of heart disease and CABG in patient's sister
#Coronary Artery Calcifications on chest CT
#Essential hypertension
#History of diverticulitis
#Hyperlipidemia
#History of GERD
#Breast cancer status post lumpectomy
CT Chest PE Study (as per radiologist's report):
'FINDINGS: There are no filling defects within the central pulmonary arteries to suggest pulmonary embolism. Evaluation of some of the more peripheral pulmonary artery branches are limited. The thoracic aorta is normal in caliber, homogeneous in
appearance, with calcific atherosclerotic changes. The heart is enlarged. Coronary artery calcifications are noted.
There is no significant hilar, mediastinal or axillary lymphadenopathy. There is no pleural or pericardial effusion. The trachea and central airways are patent. Some mild bilateral dependent subsegmental atelectasis is seen. There is no pneumothorax
or mediastinal shift.
Degenerative changes are seen within the thoracic spine.
Within the small portion of included upper abdomen, the small cystic lesion seen along the tail of the pancreas on prior CT, is not included on this study.
Some collateralization of blood flow is noted about the right shoulder, evaluation limited by prominent beam hardening artifact.
IMPRESSION:
No evidence of central pulmonary embolism. Evaluation of some the more peripheral pulmonary arterial branches limited and peripheral pulmonary embolism cannot be excluded. Cardiomegaly and coronary artery calcifications. Some collateralization of
blood flow is seen about the right shoulder, limited by beam hardening artifact, cannot exclude some right subclavian artery stenosis.'
Condition: Good
Diet: Low Fat, Low Cholesterol and Low Sodium
Activity: As tolerated
Activity Restrictions/Additional Instructions:
In the hospital your D-Dimer was found to be elevated. But you were found not to have a heart attack or pulmonary embolism. You need stress test and echocardiogram this upcoming week with [facility] outpatient office (manager event
Bebeto was notified). Given elevated D-Dimer, consider lower extremity DVT ultrasound outpatient and cancer monitoring/surveillance outpatient (since DVT and cancer can also cause elevated D-Dimer). Discuss all of this with your primary care provider
this upcoming week.
Instructions: D-dimer test
Referrals:
Wesley Tate MD [Active, Cardiology] - in less than 1 week
Referral Note: Per hospitalist communication with Dr. Tate on 04/24/25, Dr. Tate will put her in for the chest pain hotline for urgent follow up. Patient needs close and urgent outpatient follow-up for stress test and echocardiogram
Evelyn Silver DO [Family Provider, Family Practice] - in less than 1 week
Referral Note: Hospitalization Follow-Up
Additional Discharge Medication Instructions: Aspirin 81 mg daily and as needed (for chest pain) Nitroglycerin are new medications.
Your Rosuvastatin has been increased to 20 mg HS (high intensity dose for additional cardioprotective effects)
Ibuprofen stopped as NSAIDs can result in may significant adverse effects, including but not limited to myocardial infarction.
Prescriptions:
New
aspirin 81 mg tablet,chewable
81 mg PO DAILY Qty: 30 1RF
nitroglycerin 0.4 mg tablet, sublingual
0.4 mg sublingual Q5M PRN (Reason: chest pain) Qty: 20 0RF
Rx Instructions:
May administer up to 3 tablets in a 15-minute period
Continued
doxazosin 4 MG tablet
4 mg PO HS
amlodipine 5 mg tablet
5 mg PO HS
therapeutic multivitamin Tablet
1 tab PO DAILY
docusate sodium 100 mg Tablet
200 mg PO DAILY
carboxymethylcellulose sodium 1 % Drops, Liquid Gel
1 drp OPHTHALMIC (EYE) BID
Changed
rosuvastatin 5 mg tablet
20 mg PO HS Qty: 120 1RF
Discontinued
ibuprofen 800 mg tablet
800 mg PO BIDPRN PRN (Reason: mild pain)
Discharge Orders:
Discharge Patient (As Directed); Ordered 04/24/25
Ordered By: Antony Marie
Discharge Date and Time
Discharge Date/Time: 04/24/25 15:14
Print Language: SERBIAN
[2025-04-24 15:11] VITALS: BP 161/76
== END 2025-04-24 15:14 | disposition home or self-care (01) ==
LOC: ED 23:56
PROVIDERS: Nurse Practitioner; ADMITTING PHYSICIAN Hospitalist; ATTENDING PHYSICIAN Hospitalist; EMERGENCY PHYSICIAN Emergency Medicine; FAMILY PHYSICIAN Family Medicine
DX: I51.7 Cardiomegaly (principal); I25.10 Atherosclerotic heart disease of native coronary artery without angina pectoris; R07.89 Other chest pain; I10 Essential (primary) hypertension; K21.9 Gastro-esophageal reflux disease without esophagitis; E78.00 Pure hypercholesterolemia, unspecified; Z79.899 Other long term (current) drug therapy; R79.89 Other specified abnormal findings of blood chemistry; Z85.3 Personal history of malignant neoplasm of breast; Z79.82 Long term (current) use of aspirin
CPT/HCPCS: 71046; 71275; 80048; 80053; 84132; 84484; 85025; 85379; 93005; 94760; 96361; 96374; 99285; G0378; Q9967

== ENCOUNTER 2025-04-27 05:07 | Emergency (ER) | payer OTHER, SELFPAY ==
[2025-04-27] VITALS (9 sets, daily range): BP systolic 161–186; BP diastolic 64–116; BMI 22.2
[2025-04-27 05:33] LABS: Hematocrit 45.1 % (37.0-47.0); Hemoglobin 15.0 g/dL (12.0-16.0); Mean Corp Hgb Conc. 33.3 g/dL (33.0-37.0); Mean Corpuscular Volume 90.9 fL (81.0-99.0); Nucleated Red Blood Cells % 0 %; Platelet Count 189 10^3/uL (130-400); Red Cell Dist. Width 13.0 % (11.5-14.5)
[2025-04-27 06:03] LABS: ALT (SGPT) 18 U/L (0-35); AST (SGOT) 26 U/L (14-36); Albumin 4.5 g/dl (3.5-5.0); Alkaline Phosphatase 55 U/L (38-126); Blood Urea Nitrogen 21 mg/dl (7-17); Calcium 9.7 mg/dl (8.4-10.2); Carbon Dioxide 28 mmol/L (22-30); Chloride 107 mmol/L (98-107); Glucose 153 mg/dl (70-99); Potassium 4.3 mmol/L (3.5-5.1); Sodium 145 mmol/L (135-145); Total Protein 7.5 g/dl (6.3-8.2); eGFR > 60.00
--- NOTE | 2025-04-27 07:23 | ED.GENMED ---
History of Present Illness
General
Chief Complaint: Blood Pressure Problem
Source: patient, records and spouse
Exam Limitations: none
Time Seen by Provider: 04/27/25 06:31
Nursing documentation reviewed up to this point in time: agreed with
History of Present Illness
History of Present Illness:
79-year-old female returns to the ER about an hour a cool feeling and a warm feeling with her veins of sweatiness, overnight, fast heart rate palpitation no fever or chills, no nausea vomiting no abdominal pain feeling better now, admitted recently
short stay with similar chest pains had cardiac enzymes CT of the chest were unremarkable, scheduled for an echocardiogram with cardiology tomorrow, she had a busy day yesterday with a new grandchild, went to bed feeling fine
Past History
Past History
ED Past Medical History: HTN and Hypercholesterolemia
ED Past Surgical History: Appendectomy
Social History
Tobacco: Non-smoker
Drug: None
Personal:
Living: with family
Employment: Retired
Family History
Family History: Other
Phy Exam
Physical Exam
Physical Exam:
Physical Exam
General: no apparent distress, not acutely ill
Neck: No Jaundice
Heart: Tachycardic
Lungs: no acute respiratory distress. clear bilaterally
Abdomen:Nontender
Neuro: alert and oriented. no focal neurological deficits
Skin: no rash
Psychiatric: well kept. interactive and cooperative
Extremities: no edema. no calf tenderness.
Course
Orders/Labs/Results
Orders:
Orders
04/27/25 05:15
Electrocardiogram (*1) Urgent
Reason for Study: Hypertension, Benign
EKG- Treatment ONCE
04/27/25 05:23
CMP [Comprehensive Metabolic Panel] Urgent
Complete Blood Count/With Diff Urgent
TSH Urgent
Comment: ADD ON
Total Thyroxine Urgent
Comment: ADD
04/27/25 06:49
Electrocardiogram (*1) Urgent
Reason for Study: Palpitations
EKG- Treatment ONCE
04/27/25 07:16
Troponin I Urgent
04/27/25 07:32
Add On- LAB Urgent
Tests Added?: tsh
04/27/25 09:34
Add On- LAB Urgent
Tests Added?: T4
04/27/25 09:38
Troponin I Urgent
Abnormal Lab Results
04/27/25
05:23
BUN 21 H mg/dl
(7-17)
Glucose 153 H mg/dl
(70-99)
TSH 4.88 H uIU/ml
(0.47-4.68)
04/27/25 05:23
04/27/25 05:23
Vital Signs
Initial and Last Documented VS:
Initial Vital Signs
Temp Pulse Resp BP Pulse Ox
98.3 F 102 20 168/116 96
04/27/25 05:12 04/27/25 05:12 04/27/25 05:12 04/27/25 05:12 04/27/25 05:12
Last Documented Vital Signs
Temp Pulse Resp BP Pulse Ox
98.3 F 84 17 175/83 97
04/27/25 05:12 04/27/25 11:00 04/27/25 11:00 04/27/25 11:00 04/27/25 11:00
MDM/Problems Addressed
Differential Diagnosis Includes:
ACS electrolyte abnormality arrhythmia thyroid doubt PE as she has recently been worked up for this with CTA
*Pulse Oximetry
SaO2: 98
Oxygen Mode of Delivery: Room air
Patient hypoxic: no
*Critical Care Note
Total Time (30-74mins, 75-104mins- exclusive of procedures): Not Applicable
Update Note
Update Note:
11 AM update serial troponins noted serial EKGs noted labs noted prior records briefly reviewed scheduled for an echo tomorrow believe she can safely be discharged to follow-up
ED Attending Note
-
Portions of this chart may have been created with voice recognition software.� Occasional wrong word or��sound alike� substitutions may have occurred due to the inherent limitations of voice recognition software.
Discharge Plan
Departure
Patient Disposition: Home (Routine Discharge)
Date of Disposition: 04/27/25
Time of Disposition: 11:05
Patient with high blood pressure during this ER visit?: Yes
Condition: Good
Discharge Problem:
BP (high blood pressure)
Instructions: High Blood Pressure (DC)
Prescriptions:
No Action
doxazosin 4 MG tablet
4 mg PO HS
amlodipine 5 mg tablet
5 mg PO HS
therapeutic multivitamin Tablet
1 tab PO DAILY
aspirin 81 mg tablet,chewable
81 mg PO DAILY Qty: 30 1RF
nitroglycerin 0.4 mg tablet, sublingual
0.4 mg sublingual Q5M PRN (Reason: chest pain) Qty: 20 0RF
Rx Instructions:
May administer up to 3 tablets in a 15-minute period
rosuvastatin 5 mg tablet
20 mg PO HS Qty: 120 1RF
lactulose 10 gram/15 mL Syrup
10 g PO DAILY
Rx Instructions:
may repeat one time
Referrals:
Evelyn Silver DO [Family Provider, Family Practice] - Follow up in 2-3 days
Activity Restrictions/Additional Instructions:
Follow-up with your primary care provider call today for an appointment
Keep your appointment for echocardiogram
Interventions
Interventions:
*Risk Screen - Suicide Last Done: 04/27/25 05:12
*General Assessment Last Done: 04/27/25 06:45
*Neglect/Abuse Screening Last Done: 04/27/25 05:12
*ED- Fall Risk Assessment Last Done: 04/27/25 06:45
*ED COVID-19 Vaccine History Last Done: 04/27/25 06:45
*ED Influenza Vaccine History Last Done: 04/27/25 06:45
*Nursing Disposition Last Done: 04/27/25 11:38
ED- Cardiac Assessment Last Done: 04/27/25 07:00
ED- Neurological Assessment Last Done: 04/27/25 07:00
ED-Psychological Assessment Last Done: 04/27/25 07:00
ED- Pulmonary Assessment Last Done: 04/27/25 07:00
Discharge Date and Time
Discharge Date/Time: 04/27/25 11:42
Print Language: TRINIDADIAN
[2025-04-27 07:58] LABS: Troponin I 0.016 ng/ml
[2025-04-27 08:58] LABS: TSH 4.88 uIU/ml (0.47-4.68)
[2025-04-27 10:22] LABS: Troponin I 0.017 ng/ml
== END 2025-04-27 11:42 | disposition home or self-care (01) ==
LOC: EMR 05:07
PROVIDERS: Student in an Organized Health Care Education/Training Program; EMERGENCY PHYSICIAN Emergency Medicine; FAMILY PHYSICIAN Family Medicine
DX: I10 Essential (primary) hypertension (principal); R00.2 Palpitations; E78.00 Pure hypercholesterolemia, unspecified; Z90.49 Acquired absence of other specified parts of digestive tract
CPT/HCPCS: 99284; 80053; 84436; 84443; 84484; 85025; 93005

== ENCOUNTER → 2025-05-03 12:50 | Outpatient (REF) | payer OTHER, SELFPAY | LOC: RCS 12:50 | PROVIDERS: ATTENDING PHYSICIAN Internal Medicine; FAMILY PHYSICIAN Family Medicine | DX: R07.9 Chest pain, unspecified (principal); R00.2 Palpitations; I10 Essential (primary) hypertension | CPT/HCPCS: 93225; 93226 ==

== ENCOUNTER → 2025-05-09 10:32 | Outpatient (REF) | payer OTHER, SELFPAY | LOC: RAD 10:32 | PROVIDERS: ATTENDING PHYSICIAN Family Medicine | DX: R74.8 Abnormal levels of other serum enzymes (principal); R10.9 Unspecified abdominal pain | CPT/HCPCS: 74177; Q9967 ==

== ENCOUNTER → 2025-05-20 15:51 | Outpatient (REF) | payer OTHER, SELFPAY | LOC: HWRCS 15:51 | PROVIDERS: ATTENDING PHYSICIAN Internal Medicine; FAMILY PHYSICIAN Family Medicine | DX: R07.9 Chest pain, unspecified (principal); I25.10 Atherosclerotic heart disease of native coronary artery without angina pectoris; I10 Essential (primary) hypertension; E78.2 Mixed hyperlipidemia | CPT/HCPCS: 93306 ==

== ENCOUNTER → 2025-05-31 08:52 | Outpatient (REF) | payer OTHER, SELFPAY | LOC: HWRCS 08:52 | PROVIDERS: ATTENDING PHYSICIAN Internal Medicine; FAMILY PHYSICIAN Family Medicine | DX: R07.9 Chest pain, unspecified (principal); I25.10 Atherosclerotic heart disease of native coronary artery without angina pectoris; I10 Essential (primary) hypertension; E78.2 Mixed hyperlipidemia | CPT/HCPCS: 78452; 93017; A9500; J2785 ==